=== PATIENT | male | born 1965 | race African-American/Black ===

== ENCOUNTER 2021-10-12 09:40 | Emergency (ER) | payer OTHER ==
[2021-10-12] MEDS ORDERED: Ketorolac Tromethamine 30 MG/ML VIAL ONE (10:27)
[2021-10-12 21:36] LABS: Chlam.trachomatis by PCR,Urine Not Detected (NotDetected)
== END 2021-10-12 10:30 | disposition home or self-care (01) ==
LOC: CSHERS 09:40
DX: N48.89 Other specified disorders of penis (principal); I10 Essential (primary) hypertension; F17.210 Nicotine dependence, cigarettes, uncomplicated
CPT/HCPCS: 87252; 87491; 87591; 96372; 99283; J1885